=== PATIENT | female | born 1975 | race Caucasian/White ===

== ENCOUNTER 2016-02-28 15:55 | Emergency (ER) | payer MEDICARE ==
[2016-02-28] MEDS ORDERED: LIDOCAINE 2% VISC 15 ML UDC ONE (16:52)
[2016-02-28] MEDS ORDERED: TRAMADOL 50 MG TAB ONE (16:53)
== END 2016-02-28 17:03 | disposition home or self-care (01) ==
LOC: ER 15:55
DX: K02.9 Dental caries, unspecified (principal); Z87.891 Personal history of nicotine dependence

== ENCOUNTER 2016-03-13 16:32 | Emergency (ER) | payer MEDICARE | END 2016-03-13 18:36 | disposition home or self-care (01) | LOC: ER 16:32 | DX: H65.03 Acute serous otitis media, bilateral (principal); J20.9 Acute bronchitis, unspecified; F17.200 Nicotine dependence, unspecified, uncomplicated | CPT/HCPCS: 71020; 87804; 87880 ==